=== PATIENT | female | born 1975 | race Caucasian/White ===

== ENCOUNTER → 2017-07-01 | Outpatient (CLI) | payer BC ==
[~2017-07-01] MED LIST: METFORMIN500 MG PO
== END ==
LOC: MC.RAD 13:13
DX: Z12.31 Encounter for screening mammogram for malignant neoplasm of breast (principal)

== ENCOUNTER → 2019-01-27 | Outpatient (CLI) | payer BC | LOC: MC.RAD 08:27 | DX: Z12.31 Encounter for screening mammogram for malignant neoplasm of breast (principal) ==

== ENCOUNTER → 2021-04-11 | Outpatient (CLI) | payer BC | LOC: MC.RAD 12:54 | DX: Z12.31 Encounter for screening mammogram for malignant neoplasm of breast (principal); N64.89 Other specified disorders of breast ==

== ENCOUNTER → 2021-04-18 | Outpatient (CLI) | payer BC | LOC: MC.RAD 08:00 | DX: N63.21 Unspecified lump in the left breast, upper outer quadrant (principal) ==

== ENCOUNTER → 2021-12-01 | Outpatient (CLI) | payer BC | LOC: MC.RAD 09:57 | DX: N64.89 Other specified disorders of breast (principal) ==

== ENCOUNTER → 2023-10-25 | Outpatient (CLI) | payer BC ==
[2006-08-28 07:40] VITALS: TEMP 98.3
== END ==
LOC: MC.RAD 07:54
DX: Z12.31 Encounter for screening mammogram for malignant neoplasm of breast (principal)